=== PATIENT | female | born 1980 | race Caucasian/White ===

== ENCOUNTER 2024-04-24 08:44 | Inpatient (IN) ==
--- NOTE | 2024-04-24 10:26 | Emergency Department Note ---
Impression & Plan Cellulitis of right hand, Cat bite of right hand with infection ED Provider Note CHIEF COMPLAINT: Infected cat bite of the right hand HISTORY OF PRESENT ILLNESS: Patient is a [id number] 44-year-old female who returns to the emergency department for evaluation of an infected cat bite of the right hand. She was seen and evaluated here yesterday. The bite occurred on , 2 days ago. She received IV Unasyn in the emergency department and was discharged on Augmentin. She has had a total of 3 doses of the Augmentin. She states that the erythema has spread past the outline from yesterday. No fevers or chills. She has been elevating the hand for pain and swelling. REVIEW OF SYSTEMS: Review of systems as per HPI. All other systems reviewed were negative. At least 6 systems reviewed. PMH: External medical records are reviewed and summarized as above/below. See Problem List. SOCIAL HISTORY: Patient living at home. 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 PHYSICAL EXAM: Vital Signs: Reviewed Nurse's notes. CONSTITUTIONAL: Well-appearing 44-year-old female sitting semiupright on the gurney in no acute distress. INTEGUMENTARY: Examination of the dorsal aspect of the right hand note several puncture wounds, with small pustules noted. There is generalized erythema, swelling, and warmth of the dorsum of the hand, from the second through fifth MCP joints, to proximal to the extensor crease of the wrist. The thumb is spared. Fingers are mildly swollen, but not erythematous. She can extend the fingers fully, flexion limited by soft tissue swelling. There is no lymphangitic streaking up the forearm. The right upper extremity is neurovascularly intact. EMERGENCY DEPARTMENT COURSE: The patient was seen and assessed as above. External medical records are reviewed. She presents to the emergency department for evaluation of worsening with cellulitis of the right hand secondary to cat bite. She is on appropriate antibiotics, has been on antibiotics less than 24 hours however. I did recommend a repeat dose of Unasyn, patient was in agreement. This was ordered. [place] Hospitalist, Dr. Valencia, then presented to the emergency department, and reported to me that she would like to admit the patient for continued IV antibiotics. The hospitalist plan was discussed with forms analysis manager. Please refer to the hospitalist admission H&P and orders for further information. Differential diagnoses considered included cellulitis, abscess, necrotizing fasciitis, osteomyelitis, infectious tenosynovitis, among others. Past Med/Surg History Problem List (Updated 04/24/24 @ 12:23 by Ron Ramires) Cat bite of right hand with infection (Acute) Cellulitis of right hand (Acute) Cellulitis (Acute) Animal bite (Acute) Eczematous dermatitis of eyelid Depression Vitamin D deficiency Hypercholesteremia Kidney stones Uterine fibroid Medical History History of abnormal cervical Pap smear Migraine headache without aura Urinary calculus Personal history of kidney stones Conjunctivitis Surgical History No pertinent past surgical history Family History Father Myocardial infarction Stroke Grandmother (Paternal) Breast cancer Aunt Breast cancer Brother Thyroid cancer Denies family history of Ovarian cancer Prostate cancer Colorectal cancer Social History Smoking Status: Never smoker Do You Dip or Chew Tobacco: No; Hx Alcohol Use: No Hx Substance Use: No Preferred Language: French Communication Ability: Effective Visual Impairment: No Limitations Hearing Ability: Normal marital status: Single Current Living Situation Comment: lives with son current occupational status: employed 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 Feels Safe at Home: Yes Childhood Exposure to Second-Hand Smoke: No Dental Care, Regularly: Yes Physical Activity Frequency: Does not Exercise Seatbelt Use: always Allergies Allergies Allergy/AdvReac Type Severity Reaction Status Date / Time meperidine [From Demerol] Allergy Verified 04/24/24 10:49 escitalopram [From Lexapro] AdvReac tired Verified 04/24/24 10:49 Home Meds Home Medications Medication Instructions Recorded Confirmed acetaminophen 500 mg tablet 500 mg PO Q6H PRN PAIN/FEVER 04/23/24 04/24/24 drospirenone 3 mg-ethinyl 1 tab PO QAM 04/23/24 04/24/24 estradiol 0.03 mg tablet (Svitlana) multivitamin 1 tab PO DAILY 04/23/24 04/24/24 venlafaxine 150 mg See Rx Instructions .Route .COMPLEX 04/23/24 04/24/24 capsule,extended release 24 hr venlafaxine 75 mg capsule,extended See Rx Instructions .Route .COMPLEX 04/23/24 04/24/24 release 24 hr Previous Rx's Medication Instructions Recorded cholecalciferol (vitamin D3) 25 25 mcg PO DAILY #30 caps 12/18/20 mcg (1,000 unit) capsule amoxicillin 875 mg-potassium 1 tab PO BID #20 tabs 04/23/24 clavulanate 125 mg tablet Results & Data (ED) Vital Signs Vital Signs - 24 hr 04/24/24 08:52 04/24/24 11:09 Temperature 36.3 C L Temperature Source Oral Pulse Rate 88 98 H Respiratory Rate 20 Respiratory Effort / Characteristics Non-Labored Spontaneous Respiratory Depth Normal Blood Pressure 120/82 Blood Pressure Mean 94 Pulse Oximetry 96 Oxygen Delivery Method Room Air Sepsis Recent Fever Within 48 Hours No Sepsis New/Unexplained Change in Mental Status N/A Sepsis Action Taken by Nursing No Action Required Home Medications Current Medication List: was personally reviewed by me Laboratory Data 04/24/24 11:36 04/24/24 11:36 Lab Results 04/24/24 Range/Units 11:36 WBC 9.65 (4.8-10.8) K/ul RBC 4.50 (4.20-5.40) M/uL Hgb 12.7 (12.0-16.0) g/dl Hct 38.8 (37.0-47.0) % MCV 86.2 (80.0-100.0) fL MCH 28.2 (25.0-34.0) pg MCHC 32.7 (32.0-36.0) g/dL RDW Std Deviation 40.1 (36.4-46.3) fL RDW Coeff of Pratibha 12.9 (11.5-14.5) % Plt Count 290 (130-400) K/uL MPV 11.0 (9.4-12.4) fL Immature Gran % (Auto) 0.3 % Neut % (Auto) 61.7 % Lymph % (Auto) 29.9 % Graves % (Auto) 5.8 % Eos % (Auto) 1.9 % Baso % (Auto) 0.4 % Neut # (Auto) 5.95 (1.40-6.50) K/uL Lymph # (Auto) 2.89 (1.20-3.40) K/uL Graves # (Auto) 0.56 (0.11-0.59) K/uL Eos # (Auto) 0.18 (0.00-0.50) K/uL Baso # (Auto) 0.04 (0.00-0.20) K/uL Immature Gran # (Auto) 0.03 (0.01-0.20) K/uL ESR 58 H (0-20) mm/hr Sodium 138 (136-145) mmol/L Potassium TNP Chloride 105 (98-107) mmol/L Carbon Dioxide 24 (21-32) mmol/L Anion Gap 9 (3-11) BUN 9 (6-23) mg/dl Creatinine 0.56 L (0.6-1.2) mg/dl Est Cr Clr Drug Dosing 117.3 ml/min Est GFR ( Amer) 132.4 ml/min Est GFR (Non-Af Amer) 114.2 ml/min BUN/Creatinine Ratio 16.1 (10-20) Glucose 83 (70-99(Fasting)) mg/dl Calcium 8.8 (8.6-10.3) mg/dl Magnesium 2.0 (1.7-2.4) mg/dl Total Bilirubin 0.2 (0.2-1.0) mg/dl AST TNP ALT 28 (7-52) U/L Alkaline Phosphatase 79 (34-104) U/L C-Reactive Protein 8.56 H (0-0.5) mg/dl Total Protein 7.2 (6.0-8.3) gm/dl Albumin 3.7 (3.4-5.0) gm/dl Globulin 3.5 (2.5-4.0) gm/dl Albumin/Globulin Ratio 1.1 (0.9-2) Administered Medications Discontinued Medications Ampicillin Sodium/Sulbactam Sodium 3,000 mg/ Sodium Chloride 100 mls @ 200 mls/hr IV NOW STA Stop: 04/24/24 10:25 Last Infusion: 04/24/24 11:12 Dose: Infused Documented By: Admin: 04/24/24 10:45 Dose: 200 mls/hr Documented By: KALEN Discharge Plan Visit Data Chief Complaint: Animal Bite Stated Complaint: R HAND CAT BITE, REDNESS HAS EXTENDED ED Provider: Ashwin Deshpande ED Midlevel Provider: Ron Ramires Discharge Problem: Cellulitis of right hand, Cat bite of right hand with infection Patient Disposition: Admitted As Inpatient Forms Stand Alone Forms: My [facility] Prescriptions Prescriptions: No Action cholecalciferol (vitamin D3) 25 mcg (1,000 unit) capsule 25 mcg PO DAILY Qty: 30 5RF multivitamin Tablet 1 tab PO DAILY venlafaxine 75 mg capsule,extended release 24hr See Rx Instructions .ROUTE .COMPLEX Rx Instructions: Take 75mg w/ 150mg to equal 225mg by mouth every morning. venlafaxine 150 mg capsule,extended release 24hr See Rx Instructions .ROUTE .COMPLEX Rx Instructions: Take 150mg w/ 75mg to equal 225mg by mouth every morning. acetaminophen [Tylenol Ex Str Rapid Release] 500 mg Tablet 500 mg PO Q6H PRN (Reason: PAIN/FEVER) drospirenone-ethinyl estradiol [Svitlana] 3-0.03 mg tablet 1 tab PO QAM amoxicillin-pot clavulanate 875-125 mg tablet 1 tab PO BID Qty: 20 0RF Rx Instructions: Start Date 04/23/24, pt unsure of day supply but has taken 3 doses. Referrals Referrals: Jameson Wang MD [Primary Care Provider] -
[2024-04-24] MEDS: AMPICILLIN/SULBACTAM SOD 3,000 MG in SODIUM CHLOR 0.9% MINI-B 100 ML IV STA (10:45)
--- NOTE | 2024-04-24 11:11 | History & Physical Report ---
<Statement entered by Ashley Valencia MD - 04/24/24 18:33> 44 y/o with severe cellulitis dorsum of right hand following cat bite. Had dose of IV antibiotics yesterday and three doses oral augmentin yet pain and swelling worsened and erythema spread overnight. Concerns are abscess, tenosynovitis so I recommended admission for IV antibiotics and further evaluation. On my exam there is significant swelling erythema warmth and induration dorsum of R hand no obviously fluctuant areas, several puncture wounds two of which have pustules, extension of fingers mildly impaired though can get full extension with effort, flexion impaired cannot make complete fist. WBC normal and afebrile but ESR/CRP very elevated. Plan to continue unasyn, consulted Dr. Caraballo, hand MRI - hand MRI report reviewed - no abscess or drainable fluid collection, early extensor tenosynovitis R 3rd digit Agree with documentation below by Maegan Uribe PA-C Date of Service April 24, 2024 Assessment & Plan (1) Cat bite of right hand with infection: Plan: s.p Unasyn x 1 dose in ER 04/23 and 3 doses Augmentin PO at home. Cat bite at [facility] 04/22 worsened pain/edema/cellulitis despite outpt abx Obs med/surg Check CBC w/ diff, CMP, mag, procal, ESR, CRP as none prior for comparison. Can hold off blood cultures as has been on abx unless procal significantly elevated WBC borderline despite IV/PO abx, procal neg, no need for blood cultures as already received abx as well ESR/CRP elevation, 58/8.56 [facility] consulted ,discussed w/ Dr Caraballo on admission and will see in ER -->Recs for MRI hand, ordered No OR for today, diet ordered but possible I&D in AM Continue Unasyn IV for now Check MRSA swab given healthcare worker however no prior known hx MRSA, may need Dapto/Vanco if positive -- NEGATIVE MRSA screen, will continue Unasyn for now/monitor Monitor erythema/makrings Elevation of extremity Warm soaks BID Tylenol IV 1gm q8h prn fever/pain, toradol 15mg q6h prn. She is wanting to avoid opiates, toradol is preference. Orders to given dose x 1 now NPO p [place] for possible OR Monitor labs/exam in AM (2) Cellulitis of right hand: Plan: worsened despite outpatient abx, labs/MRI as above, orthopedics consulted (3) Depression: Plan: continue venlafaxine 225mg for AM, already took dose this morning. Does have issues when she doesn't take this (4) Vitamin D deficiency: (5) Hypercholesteremia: Plan inpatient stay for IV abx, MRI of hand for eval deeper infection/concerns for tenosynovitis and orthopedics evaluation as discussed with Dr Caraballo in ER. Ortho consult placed NPO at midnight in case of need for OR History of Present Illness Chief Complaint: cat bite Primary Care Provider: Jameson Wang MD 44yo female with PMH significant or depression, HLD presented after cat bite on 04/22 at [facility] and had cleaned area well but AM 04/23 worsened when she came to work and went to ER where she had xray and dose of Unasyn and discharged home on Augmentin. Is up to date on her tetanus, dose 2 years ago and cat up to date on shots. She reports she took 3 doses and elevated hand at home, has had progression of redness/erythema and blisters to two of the three bite [place], not unroofed at this time. Pain with flexion of the hand, not able to make a complete fist. Appears worse flexion/swelling than when seen yesterday. Denies fever/chills at home but wasn't taking her temperature. She notes she would like to avoid opiates and toradol drug of choice. Discussed admission for ongoing abx, will continue Unasyn unless MRSA swab positive give healthcare worker and consultation with Dr Caraballo and MRI for eval of possible underlying tenosynovitis. Takes venlafaxine daily 225mg, stroke like symptoms when she misses this and reports she did take the dose this morning. To remain NPO until imaging/eval by Dr Caraballo in case of need for OR vs monitoring on IV abx. Patient agreeable to monitoring, full code. Allergies Allergy/AdvReac Type Severity Reaction Status Date / Time meperidine [From Demerol] Allergy Verified 04/24/24 10:49 escitalopram [From Lexapro] AdvReac tired Verified 04/24/24 10:49 Home Medications Medication Instructions Recorded Confirmed Type cholecalciferol (vitamin D3) 25 25 mcg PO DAILY #30 caps 12/18/20 04/24/24 Rx mcg (1,000 unit) capsule acetaminophen 500 mg tablet 500 mg PO Q6H PRN PAIN/FEVER 04/23/24 04/24/24 History amoxicillin 875 mg-potassium 1 tab PO BID #20 tabs 04/23/24 04/24/24 Rx clavulanate 125 mg tablet drospirenone 3 mg-ethinyl 1 tab PO QAM 04/23/24 04/24/24 History estradiol 0.03 mg tablet (Svitlana) multivitamin 1 tab PO DAILY 04/23/24 04/24/24 History venlafaxine 150 mg See Rx Instructions .Route .COMPLEX 04/23/24 04/24/24 History capsule,extended release 24 hr venlafaxine 75 mg capsule,extended See Rx Instructions .Route .COMPLEX 04/23/24 04/24/24 History release 24 hr Past Med/Surg History Problem List Cat bite of right hand with infection (Acute) Cellulitis of right hand (Acute) Cellulitis (Acute) Animal bite (Acute) Eczematous dermatitis of eyelid Depression Vitamin D deficiency Hypercholesteremia Kidney stones Uterine fibroid Medical History History of abnormal cervical Pap smear Migraine headache without aura Urinary calculus Personal history of kidney stones Conjunctivitis Surgical History No pertinent past surgical history Family History Father Myocardial infarction Stroke Grandmother (Paternal) Breast cancer Aunt Breast cancer Brother Thyroid cancer Denies family history of Ovarian cancer Prostate cancer Colorectal cancer Social History Smoking Status: Never smoker Do You Dip or Chew Tobacco: No; Hx Alcohol Use: No Hx Substance Use: No Preferred Language: [place]al[place] Communication Ability: Effective Visual Impairment: No Limitations Hearing Ability: Normal marital status: Single Current Living Situation Comment: lives with son current occupational status: employed 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 Feels Safe at Home: Yes Childhood Exposure to Second-Hand Smoke: No Dental Care, Regularly: Yes Physical Activity Frequency: Does not Exercise Seatbelt Use: always Physical Exam Physical Exam: 44yo female sitting up in bed in ER, NAD but mildly uncomfortable appearing with movement/flexion to her right hand head atraumatic, normocephalic, mmm/slightly dry, trachea midline Resp; even/unlabored, no w/c/r, on room air CV: RRR (rates 80-90s), no significant mrg GI: +BS, soft/NT ; no [place] MSK/Neuro/Skin: no confusion/no slurred speech/facial droop, slight redness to cheeks RIGHT hand with several punctures from cat bite, erythema progressed along prior markings, +warmth, +tenderness, + cellulitis +pain with flexion of fingers, unable to make a fist. +pulse 2 areas of pustules, not draining some ecchymosis to mid dorsum of hand in region of third finger (most painful with flexion at this digit, however also having discomfort with flexion of 2nd/4th fingers as well) Psych: AOx3, cooperative and pleasant during encounter Results & Data Results & Data Vital Signs (Past 12 Hours) Vital Signs Temp Pulse Resp BP Pulse Ox O2 Del Method 04/24/24 08:52 36.3 C L 88 20 120/82 96 Room Air Laboratory Results 04/24/24 04/24/24 Range/Units 11:36 11:18 WBC 9.65 (4.8-10.8) K/ul RBC 4.50 (4.20-5.40) M/uL Hgb 12.7 (12.0-16.0) g/dl Hct 38.8 (37.0-47.0) % MCV 86.2 (80.0-100.0) fL MCH 28.2 (25.0-34.0) pg MCHC 32.7 (32.0-36.0) g/dL RDW Std Deviation 40.1 (36.4-46.3) fL RDW Coeff of Pratibha 12.9 (11.5-14.5) % Plt Count 290 (130-400) K/uL MPV 11.0 (9.4-12.4) fL Immature Gran % (Auto) 0.3 % Neut % (Auto) 61.7 % Lymph % (Auto) 29.9 % Arroyo % (Auto) 5.8 % Eos % (Auto) 1.9 % Baso % (Auto) 0.4 % Neut # (Auto) 5.95 (1.40-6.50) K/uL Lymph # (Auto) 2.89 (1.20-3.40) K/uL [place] # (Auto) 0.56 (0.11-0.59) K/uL Eos # (Auto) 0.18 (0.00-0.50) K/uL Baso # (Auto) 0.04 (0.00-0.20) K/uL Immature Gran # (Auto) 0.03 (0.01-0.20) K/uL ESR 58 H (0-20) mm/hr Sodium 138 (136-145) mmol/L Potassium TNP Chloride 105 (98-107) mmol/L Carbon Dioxide 24 (21-32) mmol/L Anion Gap 9 (3-11) BUN 9 (6-23) mg/dl Creatinine 0.56 L (0.6-1.2) mg/dl Est Cr Clr Drug Dosing 117.3 ml/min Est GFR ( Amer) 132.4 ml/min Est GFR (Non-Af Amer) 114.2 ml/min BUN/Creatinine Ratio 16.1 (10-20) Glucose 83 (70-99(Fasting)) mg/dl Calcium 8.8 (8.6-10.3) mg/dl Magnesium 2.0 (1.7-2.4) mg/dl Total Bilirubin 0.2 (0.2-1.0) mg/dl AST TNP ALT 28 (7-52) U/L Alkaline Phosphatase 79 (34-104) U/L C-Reactive Protein 8.56 H (0-0.5) mg/dl Total Protein 7.2 (6.0-8.3) gm/dl Albumin 3.7 (3.4-5.0) gm/dl Globulin 3.5 (2.5-4.0) gm/dl Albumin/Globulin Ratio 1.1 (0.9-2) Procalcitonin < 0.02 (0-0.5) ng/ml Nasal Screen MRSA (PCR) Pending Code Status & VTE Plan VTE Prophylaxis Plan VTE Prophylaxis will be ordered: Yes PG Care Time/CCT Total # of Minutes Spent Total Time Spent with Patient: Total time spent is greater than 50% in coordination of care (as documented) at patient's floor/unit and/or counseling patient: Coding Level of Care Code 46364 INT INP/OBS CARE 3/75MIN Diagnoses Cat bite of right hand with infection S61.451A; L08.9; W55.01XA Cellulitis of right hand L03.113 Depression F32.9 Vitamin D deficiency E55.9 Hypercholesteremia E78.00
[2024-04-24 11:51] LABS: Basophils # (auto) 0.04 K/uL (0.00-0.20); Basophils % (auto) 0.4 %; Eosinophils # (auto) 0.18 K/uL (0.00-0.50); Eosinophils % (auto) 1.9 %; Hematocrit (blood only) 38.8 % (37.0-47.0); Hemoglobin 12.7 g/dl (12.0-16.0); Immature Granulocytes # (auto) 0.03 K/uL (0.01-0.20); Immature Granulocytes % (auto) 0.3 %; Lymphocytes # (auto) 2.89 K/uL (1.20-3.40); Lymphocytes % (auto) 29.9 %; Mean Corpuscular Hemoglobin 28.2 pg (25.0-34.0); Mean Corpuscular Hgb Conc 32.7 g/dL (32.0-36.0); Mean Corpuscular Volume 86.2 fL (80.0-100.0); Monocytes # (auto) 0.56 K/uL (0.11-0.59); Monocytes % (auto) 5.8 %; Neutrophils # (auto) 5.95 K/uL (1.40-6.50); Neutrophils % (auto) 61.7 %; Platelet Count 290 K/uL (130-400); RDW Coefficient of Variation 12.9 % (11.5-14.5); RDW Standard Deviation 40.1 fL (36.4-46.3); White Blood Count 9.65 K/ul (4.8-10.8)
[2024-04-24 12:07] LABS: Alanine Aminotransferase 28 U/L (7-52); Albumin Globulin Ratio 1.1 (0.9-2); Albumin Level 3.7 gm/dl (3.4-5.0); Alkaline Phosphatase 79 U/L (34-104); Anion Gap 9 (3-11); BUN Creatinine Ratio 16.1 (10-20); Bilirubin,Total 0.2 mg/dl (0.2-1.0); Blood Urea Nitrogen 9 mg/dl (6-23); C Reactive Protein 8.56 mg/dl (0-0.5); Calcium 8.8 mg/dl (8.6-10.3); Carbon Dioxide 24 mmol/L (21-32); Chloride 105 mmol/L (98-107); Creatinine Clr Calc Pharmacy 117.3 ml/min; Est GFR (African American) 132.4 ml/min; Est GFR (Non-African American) 114.2 ml/min; Globulin 3.5 gm/dl (2.5-4.0); Glucose 83 mg/dl (70-99(Fasting)); Sodium 138 mmol/L (136-145); Total Protein 7.2 gm/dl (6.0-8.3)
--- NOTE | 2024-04-24 12:57 | Anesthesiology Consultation ---
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 History Surgery Operation Date: 04/25/24 07:30 Proposed Procedures p Incision and Drainage of Right Hand - Brant Caraballo MD Height/Weight Height: 5 ft 2 in Weight: 68.2 kg Allergies Allergy/AdvReac Type Severity Reaction Status Date / Time meperidine [From Demerol] Allergy Verified 04/24/24 10:49 escitalopram [From Lexapro] AdvReac tired Verified 04/24/24 10:49 Medications Home Medications Medication Instructions Recorded Confirmed Last Taken cholecalciferol (vitamin D3) 25 25 mcg PO DAILY #30 caps 12/18/20 04/24/24 04/24/24 mcg (1,000 unit) capsule acetaminophen 500 mg tablet 500 mg PO Q6H PRN PAIN/FEVER 04/23/24 04/24/24 Unknown amoxicillin 875 mg-potassium 1 tab PO BID #20 tabs 04/23/24 04/24/24 04/24/24 clavulanate 125 mg tablet drospirenone 3 mg-ethinyl 1 tab PO QAM 04/23/24 04/24/24 04/24/24 estradiol 0.03 mg tablet (Svitlana) multivitamin 1 tab PO DAILY 04/23/24 04/24/24 04/24/24 venlafaxine 150 mg See Rx Instructions .Route .COMPLEX 04/23/24 04/24/24 04/24/24 capsule,extended release 24 hr venlafaxine 75 mg capsule,extended See Rx Instructions .Route .COMPLEX 04/23/24 04/24/24 04/24/24 release 24 hr Past Medical History Medical History History of abnormal cervical Pap smear Migraine headache without aura Urinary calculus Personal history of kidney stones Conjunctivitis Past Family History Family History Father Myocardial infarction Stroke Grandmother (Paternal) Breast cancer Aunt Breast cancer Brother Thyroid cancer Denies family history of Ovarian cancer Prostate cancer Colorectal cancer Past Surgical History Surgical History No pertinent past surgical history Social History Smoking Status: Never smoker Do You Dip or Chew Tobacco: No Hx Alcohol Use: No Hx Substance Use: No Physical Exam Vital Signs Last Vital Signs Temp 97.3 F L 04/24/24 08:52 Pulse 98 H 04/24/24 11:09 Resp 20 04/24/24 08:52 BP 120/82 04/24/24 08:52 Pulse Ox 96 04/24/24 08:52 O2 Del Method Room Air 04/24/24 08:52 Testing Laboratory Results 04/24/24 11:36
[2024-04-24 13:03] LABS: Potassium 3.6 mmol/L (3.5-5.1)
[2024-04-24] MEDS ORDERED: ACETAMINOPHEN 1,000 MG/100 ML VIAL IV PRN (14:24)
[2024-04-24] MEDS: KETOROLAC TROMETHAMINE 15 MG/ML VIAL IV PRN (14:36)
[2024-04-24] MEDS: AMPICILLIN/SULBACTAM SOD 3,000 MG in SODIUM CHLOR 0.9% MINI-B 100 ML IV SCH (16:29)
[2024-04-24] MEDS: GADOBUTROL 10ML VIAL IV ONE (18:01)
--- NOTE | 2024-04-24 18:24 | Magnetic Resonance Report ---
MR hand RT wo/w con HISTORY: 44 years-old Female cat bite, eval tenosynovitis acute pain of the right hand status post i njury. Soft tissue swelling. COMPARISON: Hand radiographs 04/23/2024 TECHNIQUE: Multiplanar multisequence MRI of the right hand was obtained with and without IV contrast. FINDINGS: Motion degraded exam. There is moderate dorsal subcutaneous edema with edema tracking along the secon d through fifth digit extensor tendons. Subcutaneous edema is most pronounced in the third finger. No drainable fluid collections or bone marrow edema. No acute fracture, dislocation or osseous erosion. Flexor compartment tendons appear normal. Unremarkable ulnar nerve. No acute tendon or ligament tear identified. Enhancement is noted along the dorsal aspect of the third extensor tendon sheath on imag e 17 series 11. IMPRESSION: 1. Dorsal hand cellulitis with developing third digit extensor tenosynovitis. 2. No abscess or acute osseous abnormality. ACT 112: Negative or not required by law. The above report was generated using voice recognition software. It may contain grammatical, syntax o r spelling errors. Electronically signed by: El Valladares M.D. 04/24/2024 6:22 PM
--- NOTE | 2024-04-24 19:24 | Orthopedic Consultation ---
Date of Consultation April 24, 2024 Assessment & Plan (1) Cat bite of right hand with infection: IMPRESSION: Right hand cellulitis following cat bite PLAN: Continue IV antibiotics Warm soaks BID Will continue to follow. Have placed on the add-on list for tomorrow if symptoms worsen, NPO after midnight. Continue care per primary service Present on Admission?: Yes History of Present Illness Reason for Consultation: Right infection following cat bite Requesting Physician: Jas Caraballo MD Attending Physician: Ashley Valencia MD History of Present Illness 44 y/o female was bit by a cat on her right hand. She developed cellulitis in the dorsum of the right hand and had a dose of IV antibiotics 04/23/24 and three doses oral Augmentin; however her pain, swelling, and erythema worsened overnight. She returned to the ED and has been admitted for IV antibiotics. I was consulted for further evaluation and treatment. Allergies Allergy/AdvReac Type Severity Reaction Status Date / Time meperidine [From Demerol] Allergy Verified 04/24/24 10:49 escitalopram [From Lexapro] AdvReac tired Verified 04/24/24 10:49 Home Medications Medication Instructions Recorded Confirmed Type cholecalciferol (vitamin D3) 25 25 mcg PO DAILY #30 caps 12/18/20 04/24/24 Rx mcg (1,000 unit) capsule acetaminophen 500 mg tablet 500 mg PO Q6H PRN PAIN/FEVER 04/23/24 04/24/24 History amoxicillin 875 mg-potassium 1 tab PO BID #20 tabs 04/23/24 04/24/24 Rx clavulanate 125 mg tablet drospirenone 3 mg-ethinyl 1 tab PO QAM 04/23/24 04/24/24 History estradiol 0.03 mg tablet (Svitlana) multivitamin 1 tab PO DAILY 04/23/24 04/24/24 History venlafaxine 150 mg See Rx Instructions .Route .COMPLEX 04/23/24 04/24/24 History capsule,extended release 24 hr venlafaxine 75 mg capsule,extended See Rx Instructions .Route .COMPLEX 04/23/24 04/24/24 History release 24 hr Patient History Medical History History of abnormal cervical Pap smear Migraine headache without aura Urinary calculus Personal history of kidney stones Conjunctivitis Surgical History No pertinent past surgical history Family History Father Myocardial infarction Stroke Grandmother (Paternal) Breast cancer Aunt Breast cancer Brother Thyroid cancer Denies family history of Ovarian cancer Prostate cancer Colorectal cancer Social History Smoking Status: Never smoker Second Hand Exposure: No; Do You Dip or Chew Tobacco: No; Tobacco Cessation Education Requested by Patient: No Hx Alcohol Use: No Hx Substance Use: No Preferred Language: Vietnamese Communication Ability: Effective Visual Impairment: No Limitations Hearing Ability: Normal Regional Vice [employer] Required: No Beliefs That Will Affect Care: None marital status: Single Current Living Situation: Family Current Living Situation Comment: lives with son 13 years old current occupational status: employed 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 Motor to median, radial, ulnar, AIN, PIN intact. Sensation to light touch intact. + Swelling dorsum of hand. No juana fluid collection. Area is tender to palpation. 2 dorsal punch wounds noted one adjacent to the 3rd metacarpal distally with fibrinous material & the other with small scab near 1st web space. Has no pain with extension of the digits. Unable to make a full fist. Fingers are normal size. Erythema has spread slight proximally from mykel made the day before. Results & Data Vital Signs (Past 12 Hours) Vital Signs Temp Pulse Pulse Resp BP BP Pulse Ox 04/24/24 15:25 36.6 C 83 14 117/76 97 04/24/24 14:00 36.6 C 16 114/75 04/24/24 11:09 98 H 04/24/24 08:52 36.3 C L 88 20 120/82 96 O2 Del Method 04/24/24 15:25 Room Air 04/24/24 14:00 Room Air 04/24/24 11:09 04/24/24 08:52 Room Air Laboratory Results Laboratory Results WBC 9.65 K/ul (4.8-10.8) 04/24/24 11:36 RBC 4.50 M/uL (4.20-5.40) 04/24/24 11:36 Hgb 12.7 g/dl (12.0-16.0) 04/24/24 11:36 Hct 38.8 % (37.0-47.0) 04/24/24 11:36 MCV 86.2 fL (80.0-100.0) 04/24/24 11:36 MCH 28.2 pg (25.0-34.0) 04/24/24 11:36 MCHC 32.7 g/dL (32.0-36.0) 04/24/24 11:36 RDW Std Deviation 40.1 fL (36.4-46.3) 04/24/24 11:36 RDW Coeff of Pratibha 12.9 % (11.5-14.5) 04/24/24 11:36 Plt Count 290 K/uL (130-400) 04/24/24 11:36 MPV 11.0 fL (9.4-12.4) 04/24/24 11:36 Immature Gran % (Auto) 0.3 % 04/24/24 11:36 Neut % (Auto) 61.7 % 04/24/24 11:36 Lymph % (Auto) 29.9 % 04/24/24 11:36 Callahan % (Auto) 5.8 % 04/24/24 11:36 Eos % (Auto) 1.9 % 04/24/24 11:36 Baso % (Auto) 0.4 % 04/24/24 11:36 Neut # (Auto) 5.95 K/uL (1.40-6.50) 04/24/24 11:36 Lymph # (Auto) 2.89 K/uL (1.20-3.40) 04/24/24 11:36 Callahan # (Auto) 0.56 K/uL (0.11-0.59) 04/24/24 11:36 Eos # (Auto) 0.18 K/uL (0.00-0.50) 04/24/24 11:36 Baso # (Auto) 0.04 K/uL (0.00-0.20) 04/24/24 11:36 Immature Gran # (Auto) 0.03 K/uL (0.01-0.20) 04/24/24 11:36 ESR 58 mm/hr (0-20) H 04/24/24 11:36 Sodium 138 mmol/L (136-145) 04/24/24 11:36 Potassium 3.6 mmol/L (3.5-5.1) 04/24/24 12:13 Chloride 105 mmol/L (98-107) 04/24/24 11:36 Carbon Dioxide 24 mmol/L (21-32) 04/24/24 11:36 Anion Gap 9 (3-11) 04/24/24 11:36 BUN 9 mg/dl (6-23) 04/24/24 11:36 Creatinine 0.56 mg/dl (0.6-1.2) L 04/24/24 11:36 Est Cr Clr Drug Dosing 117.3 ml/min 04/24/24 11:36 Est GFR ( Amer) 132.4 ml/min 04/24/24 11:36 Est GFR (Non-Af Amer) 114.2 ml/min 04/24/24 11:36 BUN/Creatinine Ratio 16.1 (10-20) 04/24/24 11:36 Glucose 83 mg/dl (70-99(Fasting)) 04/24/24 11:36 Calcium 8.8 mg/dl (8.6-10.3) 04/24/24 11:36 Magnesium 2.0 mg/dl (1.7-2.4) 04/24/24 11:36 Total Bilirubin 0.2 mg/dl (0.2-1.0) 04/24/24 11:36 AST 23 U/L (13-39) 04/24/24 12:13 ALT 28 U/L (7-52) 04/24/24 11:36 Alkaline Phosphatase 79 U/L (34-104) 04/24/24 11:36 C-Reactive Protein 8.56 mg/dl (0-0.5) H 04/24/24 11:36 Total Protein 7.2 gm/dl (6.0-8.3) 04/24/24 11:36 Albumin 3.7 gm/dl (3.4-5.0) 04/24/24 11:36 Globulin 3.5 gm/dl (2.5-4.0) 04/24/24 11:36 Albumin/Globulin Ratio 1.1 (0.9-2) 04/24/24 11:36 Procalcitonin < 0.02 ng/ml (0-0.5) 04/24/24 11:36 Nasal Screen MRSA (PCR) Negative (Negative) 04/24/24 11:18 Impressions Hand MRI 04/24/24 10:56 MR hand RT wo/w con HISTORY: 44 years-old Female cat bite, eval tenosynovitis acute pain of the right hand status post injury. Soft tissue swelling. COMPARISON: Hand radiographs 04/23/2024 TECHNIQUE: Multiplanar multisequence MRI of the right hand was obtained with and without IV contrast. FINDINGS: Motion degraded exam. There is moderate dorsal subcutaneous edema with edema tracking along the second through fifth digit extensor tendons. Subcutaneous edema is most pronounced in the third finger. No drainable fluid collections or bone marrow edema. No acute fracture, dislocation or osseous erosion. Flexor com partment tendons appear normal. Unremarkable ulnar nerve. No acute tendon or ligament tear identified. Enhancement is noted along the dorsal aspect of the third extensor tendon sheath on image 17 series 11. IMPRESSION: 1. Dorsal hand cellulitis with developing third digit extensor tenosynovitis. 2. No abscess or acute osseous abnormality. ACT 112: Negative or not required by law. The above report was generated using voice recognition software. It may contain grammatical, syntax or spelling errors. Electronically signed by: El Valladares M.D. 04/24/2024 6:22 PM
[2024-04-25 06:13] LABS: Basophils # (auto) 0.04 K/uL (0.00-0.20); Basophils % (auto) 0.6 %; Eosinophils # (auto) 0.28 K/uL (0.00-0.50); Eosinophils % (auto) 4.4 %; Hematocrit (blood only) 38.8 % (37.0-47.0); Hemoglobin 12.7 g/dl (12.0-16.0); Immature Granulocytes # (auto) 0.01 K/uL (0.01-0.20); Immature Granulocytes % (auto) 0.2 %; Lymphocytes # (auto) 2.97 K/uL (1.20-3.40); Lymphocytes % (auto) 46.6 %; Mean Corpuscular Hemoglobin 28.1 pg (25.0-34.0); Mean Corpuscular Hgb Conc 32.7 g/dL (32.0-36.0); Mean Corpuscular Volume 85.8 fL (80.0-100.0); Mean Platelet Volume 11.1 fL (9.4-12.4); Monocytes # (auto) 0.38 K/uL (0.11-0.59); Neutrophils % (auto) 42.2 %; Platelet Count 280 K/uL (130-400); RDW Coefficient of Variation 12.9 % (11.5-14.5); RDW Standard Deviation 40.2 fL (36.4-46.3); Red Blood Count 4.52 M/uL (4.20-5.40); White Blood Count 6.38 K/ul (4.8-10.8)
[2024-04-25 06:35] LABS: Albumin Globulin Ratio 1.1 (0.9-2); Albumin Level 3.6 gm/dl (3.4-5.0); BUN Creatinine Ratio 16.9 (10-20); Bilirubin,Total 0.3 mg/dl (0.2-1.0); Calcium 8.8 mg/dl (8.6-10.3); Creatinine Clr Calc Pharmacy 111.3 ml/min; Est GFR (African American) 130.1 ml/min; Est GFR (Non-African American) 112.3 ml/min; Globulin 3.2 gm/dl (2.5-4.0); Potassium 3.9 mmol/L (3.5-5.1); Total Protein 6.8 gm/dl (6.0-8.3)
--- NOTE | 2024-04-25 07:47 | Hospitalist Progress Note ---
<Statement entered by Ashley Valencia MD - 04/25/24 16:42> On my exam Dede's hand is significantly improved today with much less erythema and swelling, ROM of fingers normalized. Plan to continue IV amp- sulbactam through tomorrow AM then home on augmentin. Wound culture with a gram negative mena, pending. Date of Service April 25, 2024 Assessment & Plan (1) Cat bite of right hand with infection: Plan: Initial cat bite at [facility] 04/22 s/p Unasyn x 1 dose in ER 04/23 and 3 doses Augmentin PO at home and additional dose of Unasyn in ER prior to admission with concerns for worsened cellulitis/failure of outpatient treatment and possible underlying tenosynovitis WBC borderline despite abx, however procalcitonin negative. ESR 58, CRP 8.56 Unasyn IV ordered to continue Discussed w/ Dr Caraballo on admission, rec for MRI MRI hand w/ Dorsal hand cellulitis with developing third digit extensor tenosynovitis. No abscess or acute osseous abnormality. Diet, NPO at midnight for possible I&D right hand 04/25 04/[address] Caraballo this morning and is making improvement, no need for I&D. NPO cancelled, diet order Unasyn IV continued WBC 6.3k, hgb 12.7. electrolytes/renal function stable Continue to monitor erythema. Continue elevation, warm soaks BID Tylenol/toradol IV prn pain control - changed tylenol to PO as no longer NPO Was able to grab cx following soaks, no organisms seen/moderate WBC -- follow Would continue IV antibiotics MINIMUM 48hours (through AM 04/26), then can transition to PO if continued improvement and plan to have patient return if any worsening Changed to full admission DVT proph: ambulating in the rooms/no need for chemoproph. (2) Flexor tenosynovitis of finger: Plan: as concerned for on admission given failure of outpatient abx/need for at least continued IV MRI hand w/ Dorsal hand cellulitis with developing third digit extensor tenosynovitis. tx as above continued IV abx (3) Cellulitis of right hand: Plan: worsened despite outpatient abx, labs/MRI as above, orthopedics consulted as above. Thankfully able to avoid I&D and continue IV abx as above (4) Depression: Plan: continue venlafaxine 225mg for AM, issues if she misses (took prior to admission) (5) Vitamin D deficiency: Plan: continue supp (6) Hypercholesteremia: Plan: outpt f/u, diet Plan inpatient stay for IV abx overnight and if continued improvement consideration for dc in AM on PO abx and return if any worsening Admission and Anticipated Discharge Date Admission Date: April 24, 2024 Subjective Evaluated this morning, hand MUCH improved w/ cellulitis. MRI prior reviewed last evening and had been NPO for possible I&D today with Dr Caraballo but appears continued IV abx working and OR cancelled/given diet. Improvement in pain reported as well as flexion/extension, able to make almost complete fist today. Continue elevation, warm soaks. She did get some drainage w/ the soaks/culture sent. Discussed w/ orthopedics and recs for 48hr IV abx and if continued improvement will plan for dc on PO abx and to return if any worsening. No fever/chills, chest pain, shortness of breath. Questions/concerns addressed at this time. Physical Exam Physical Exam: 44yo female coming out of bathroom upon entry, NAD, hand with SIGNIFICANT improvement HEENT: atraumatic, normocephalic, mmm, trachea midline Resp: even/unlabored, no w/c/r, on room air CV: RRR, no significant mrg GI: +BS, soft/NT ; no hudson MSK/Neuro/Skin: no confusion/no slurred speech/facial droop, slight redness to cheeks RIGHT hand with SIGNIFICANT improvement in erythema, receding within markings, decreased tenderness/warmth increased ROM of fingers, able to almost make a complete fist today, improvement in extension. no abscess/fluid collection prior blisters reported draining w/ warm soaks less darkness to palm/third digit on palmar aspect of hand w/ improvement in movement third digit flexion/extension today Psych: AOx3, cooperative and pleasant during encounter Results & Data Results & Data Vital Signs (Past 12 Hours) Vital Signs Temp Pulse Resp BP Pulse Ox O2 Del Method 04/25/24 07:27 36.8 C 85 14 107/73 96 Room Air 04/24/24 21:04 36.6 C 89 16 103/63 94 Room Air Laboratory Results 04/25/24 04/24/24 04/24/24 Range/Units 05:31 15:49 12:13 WBC 6.38 (4.8-10.8) K/ul RBC 4.52 (4.20-5.40) M/uL Hgb 12.7 (12.0-16.0) g/dl Hct 38.8 (37.0-47.0) % MCV 85.8 (80.0-100.0) fL MCH 28.1 (25.0-34.0) pg MCHC 32.7 (32.0-36.0) g/dL RDW Std Deviation 40.2 (36.4-46.3) fL RDW Coeff of Pratibha 12.9 (11.5-14.5) % Plt Count 280 (130-400) K/uL MPV 11.1 (9.4-12.4) fL Immature Gran % (Auto) 0.2 % Neut % (Auto) 42.2 % Lymph % (Auto) 46.6 % Tripp % (Auto) 6.0 % Eos % (Auto) 4.4 % Baso % (Auto) 0.6 % Neut # (Auto) 2.70 (1.40-6.50) K/uL Lymph # (Auto) 2.97 (1.20-3.40) K/uL Tripp # (Auto) 0.38 (0.11-0.59) K/uL Eos # (Auto) 0.28 (0.00-0.50) K/uL Baso # (Auto) 0.04 (0.00-0.20) K/uL Immature Gran # (Auto) 0.01 (0.01-0.20) K/uL ESR (0-20) mm/hr Sodium 139 (136-145) mmol/L Potassium 3.9 3.6 Chloride 106 (98-107) mmol/L Carbon Dioxide 26 (21-32) mmol/L Anion Gap 7 (3-11) BUN 10 (6-23) mg/dl Creatinine 0.59 L (0.6-1.2) mg/dl Est Cr Clr Drug Dosing 111.3 ml/min Est GFR ( Amer) 130.1 ml/min Est GFR (Non-Af Amer) 112.3 ml/min BUN/Creatinine Ratio 16.9 (10-20) Glucose 92 (70-99(Fasting)) mg/dl Calcium 8.8 (8.6-10.3) mg/dl Magnesium 2.0 (1.7-2.4) mg/dl Total Bilirubin 0.3 (0.2-1.0) mg/dl AST 23 23 ALT 29 (7-52) U/L Alkaline Phosphatase 78 (34-104) U/L C-Reactive Protein (0-0.5) mg/dl Total Protein 6.8 (6.0-8.3) gm/dl Albumin 3.6 (3.4-5.0) gm/dl Globulin 3.2 (2.5-4.0) gm/dl Albumin/Globulin Ratio 1.1 (0.9-2) Procalcitonin (0-0.5) ng/ml POC Ur Test Pending Nasal Screen MRSA (PCR) (Negative) 04/24/24 04/24/24 Range/Units 11:36 11:18 WBC 9.65 (4.8-10.8) K/ul RBC 4.50 (4.20-5.40) M/uL Hgb 12.7 (12.0-16.0) g/dl Hct 38.8 (37.0-47.0) % MCV 86.2 (80.0-100.0) fL MCH 28.2 (25.0-34.0) pg MCHC 32.7 (32.0-36.0) g/dL RDW Std Deviation 40.1 (36.4-46.3) fL RDW Coeff of Pratibha 12.9 (11.5-14.5) % Plt Count 290 (130-400) K/uL MPV 11.0 (9.4-12.4) fL Immature Gran % (Auto) 0.3 % Neut % (Auto) 61.7 % Lymph % (Auto) 29.9 % Tripp % (Auto) 5.8 % Eos % (Auto) 1.9 % Baso % (Auto) 0.4 % Neut # (Auto) 5.95 (1.40-6.50) K/uL Lymph # (Auto) 2.89 (1.20-3.40) K/uL Tripp # (Auto) 0.56 (0.11-0.59) K/uL Eos # (Auto) 0.18 (0.00-0.50) K/uL Baso # (Auto) 0.04 (0.00-0.20) K/uL Immature Gran # (Auto) 0.03 (0.01-0.20) K/uL ESR 58 H (0-20) mm/hr Sodium 138 (136-145) mmol/L Potassium TNP Chloride 105 (98-107) mmol/L Carbon Dioxide 24 (21-32) mmol/L Anion Gap 9 (3-11) BUN 9 (6-23) mg/dl Creatinine 0.56 L (0.6-1.2) mg/dl Est Cr Clr Drug Dosing 117.3 ml/min Est GFR ( Amer) 132.4 ml/min Est GFR (Non-Af Amer) 114.2 ml/min BUN/Creatinine Ratio 16.1 (10-20) Glucose 83 (70-99(Fasting)) mg/dl Calcium 8.8 (8.6-10.3) mg/dl Magnesium 2.0 (1.7-2.4) mg/dl Total Bilirubin 0.2 (0.2-1.0) mg/dl AST TNP ALT 28 (7-52) U/L Alkaline Phosphatase 79 (34-104) U/L C-Reactive Protein 8.56 H (0-0.5) mg/dl Total Protein 7.2 (6.0-8.3) gm/dl Albumin 3.7 (3.4-5.0) gm/dl Globulin 3.5 (2.5-4.0) gm/dl Albumin/Globulin Ratio 1.1 (0.9-2) Procalcitonin < 0.02 (0-0.5) ng/ml POC Ur Test Nasal Screen MRSA (PCR) Negative (Negative) Diagnostic Findings Hand MRI 04/24/24 10:56 MR hand RT wo/w con HISTORY: 44 years-old Female cat bite, eval tenosynovitis acute pain of the right hand status post injury. Soft tissue swelling. COMPARISON: Hand radiographs 04/23/2024 TECHNIQUE: Multiplanar multisequence MRI of the right hand was obtained with and without IV contrast. FINDINGS: Motion degraded exam. There is moderate dorsal subcutaneous edema with edema tracking along the second through fifth digit extensor tendons. Subcutaneous edema is most pronounced in the third finger. No drainable fluid collections or bone marrow edema. No acute fracture, dislocation or osseous erosion. Flexor compartment tendons appear normal. Unremarkable ulnar nerve. No acute tendon or ligament tear identified. Enhancement is noted along the dorsal aspect of the third extensor tendon sheath on image 17 series 11. IMPRESSION: 1. Dorsal hand cellulitis with developing third digit extensor tenosynovitis. 2. No abscess or acute osseous abnormality. ACT 112: Negative or not required by law. The above report was generated using voice recognition software. It may contain grammatical, syntax or spelling errors. Electronically signed by: El Valladares M.D. 04/24/2024 6:22 PM PG Care Time/CCT Total # of Minutes Spent Total Time Spent with Patient: Total time spent is greater than 50% in coordination of care (as documented) at patient's floor/unit and/or counseling patient: Coding Level of Care Code 01030 SUB INP/OBS CARE 2/35MIN Diagnoses Cat bite of right hand with infection S61.451A; L08.9; W55.01XA Flexor tenosynovitis of finger M65.9 Cellulitis of right hand L03.113 Depression F32.9 Vitamin D deficiency E55.9 Hypercholesteremia E78.00
[2024-04-25] MEDS: LIDOCAINE 1% LOCAL 20 ML VIAL ONE (08:24)
[2024-04-25] MEDS: VENLAFAXINE HCL XR 150 MG CAPXR PO SCH (08:24)
[2024-04-25] MEDS: CHOLECALCIFEROL 25 MCG (1000 UNITS) TAB PO SCH (08:24)
[2024-04-25] MEDS: VENLAFAXINE HCL XR 75 MG CAPXR PO SCH (08:24)
[2024-04-25] MEDS: BUPIVACAINE/EPINEPHRINE 0.5% MPF 1:200,000 30 ML VIAL ONE (08:24)
--- NOTE | 2024-04-25 08:31 | Orthopedic Progress Note ---
Date of Service April 25, 2024 Assessment & Plan (1) Cat bite of right hand with infection: Plan: The patient was educated regarding today's findings. Conservative care measures were discussed. Though she is improving considerably from yesterday, IV antibiotics are recommended for least another 24 hours. If symptoms continue to improve, she can be transitioned to oral antibiotics. Continue with the warm soapy soaks to promote drainage. The patient will be allowed to eat today. I do not anticipate any need for surgical intervention with her improvement. She will be reassessed in the morning. The patient was seen in conjunction with Dr. Caraballo, who also evaluated the patient and concurred with today's diagnosis and treatment plan. Admission and Anticipated Discharge Date Admission Date: April 24, 2024 Supervising Physician Co-Signing Physician Notes I, Dr. Caraballo, saw and examined the patient. I discussed the management with my PA. I reviewed my PAs note and agree with the documented findings and attest to completing the substantive portion of medical decision making and plan of care I developed. Subjective This 44-year-old female seen today in her room. She is 1 day post admission for right hand infection from a cat bite at [facility]. She has received IV Unasyn overnight. She also performed soaking of the hand numerous times last evening. She states a large amount of pus was expressed. She states the hand feels much better. She remains afebrile. No new complaints. She is n.p.o. this morning in anticipation of possible surgical intervention today. Review of Systems Review of Systems: Unchanged from yesterday. Physical Exam Physical Exam: General: Well-developed, well-nourished, middle-aged female, in no acute distress. Sitting in a bedside chair. Alert and oriented. Skin: Warm and dry with good turgor. No rashes. Puncture kilgore on the dorsum of the right hand are much improved. No pus present. The edema on the dorsum of the hand has improved considerably. Erythema has also improved. Dorsum of the hand is minimally tender. No warmth. Musculoskeletal: The patient has intact motor function of her digits for both flexion and extension. She is able to make a full fist. Thumb circumduction and opposition are intact. Good motion of the wrist without discomfort. No symptoms of tenosynovitis currently. Neurologic: Gross sensation is intact across each of the digits of the right hand. Radial, median, and ulnar nerve functions are intact for both motor and sensory. Peripheral pulses are 2+. Results & Data Vital Signs (Past 12 Hours) Vital Signs Temp Pulse Resp BP Pulse Ox O2 Del Method 04/25/24 07:27 36.8 C 85 14 107/73 96 Room Air 04/24/24 21:04 36.6 C 89 16 103/63 94 Room Air Laboratory Results CBC obtained this morning shows a white count of 6.38. H&H of 12.7 and 38.8. Platelets 280,000. Normal differential. PRP this morning shows normal electrolytes. Normal BUN at 10. Creatinine essentially normal at 0.59. Glucose this morning 92.
[2024-04-25] MEDS ORDERED: ACETAMINOPHEN 500 MG TAB PO PRN (09:55)
[2024-04-26 06:26] LABS: Hematocrit (blood only) 37.9 % (37.0-47.0); Hemoglobin 12.4 g/dl (12.0-16.0); Mean Corpuscular Hemoglobin 28.7 pg (25.0-34.0); Mean Corpuscular Hgb Conc 32.7 g/dL (32.0-36.0); Mean Corpuscular Volume 87.7 fL (80.0-100.0); Mean Platelet Volume 11.2 fL (9.4-12.4); Platelet Count 293 K/uL (130-400); RDW Coefficient of Variation 12.8 % (11.5-14.5); RDW Standard Deviation 41.4 fL (36.4-46.3); Red Blood Count 4.32 M/uL (4.20-5.40); White Blood Count 6.13 K/ul (4.8-10.8)
[2024-04-26 06:38] LABS: BUN Creatinine Ratio 21.3 (10-20); C Reactive Protein 3.52 mg/dl (0-0.5); Calcium 8.2 mg/dl (8.6-10.3); Creatinine Clr Calc Pharmacy 107.6 ml/min; Est GFR (African American) 128.7 ml/min; Potassium 4.1 mmol/L (3.5-5.1)
--- NOTE | 2024-04-26 08:07 | Hospitalist Progress Note ---
Date of Service April 26, 2024 Assessment & Plan (1) Cat bite of right hand with infection: Plan: Initial cat bite at [facility] 04/22 s/p Unasyn x 1 dose in ER 04/23 and 3 doses Augmentin PO at home and additional dose of Unasyn in ER prior to admission with concerns for worsened cellulitis/failure of outpatient treatment and possible underlying tenosynovitis WBC borderline despite abx, however procalcitonin negative. ESR 58, CRP 8.56 Unasyn IV ordered to continue Discussed w/ Dr Caraballo on admission, rec for MRI MRI hand w/ Dorsal hand cellulitis with developing third digit extensor tenosynovitis. No abscess or acute osseous abnormality. Diet, NPO at midnight for possible I&D right hand 04/25 04/[address] Caraballo this morning and is making improvement, no need for I&D. NPO cancelled, diet order Unasyn IV continued WBC 6.3k, hgb 12.7. electrolytes/renal function stable Continue to monitor erythema. Continue elevation, warm soaks BID Tylenol/toradol IV prn pain control - changed tylenol to PO as no longer NPO Was able to grab cx following soaks, no organisms seen/moderate WBC -- follow Would continue IV antibiotics MINIMUM 48hours (through AM 04/26), then can transition to PO if continued improvement and plan to have patient return if any worsening Changed to full admission DVT proph: ambulating in the rooms/no need for chemoproph. 04/26 -- WBC wnl, afebrile. ESR/CRP trending down. 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 If continued improvement on exam this morning will plan to dc back on PO abx (2) Flexor tenosynovitis of finger: Plan: as concerned for on admission given failure of outpatient abx/need for at least continued IV MRI hand w/ Dorsal hand cellulitis with developing third digit extensor tenosynovitis. tx as above continued IV abx (3) Cellulitis of right hand: Plan: worsened despite outpatient abx, labs/MRI as above, orthopedics consulted as above. Thankfully able to avoid I&D and continue IV abx as above (4) Depression: Plan: continue venlafaxine 225mg for AM, issues if she misses (took prior to admission) (5) Vitamin D deficiency: Plan: continue supp (6) Hypercholesteremia: Plan: outpt f/u, diet Plan inpatient stay for IV abx overnight and if continued improvement consideration for dc in AM on PO abx and return if any worsening Admission and Anticipated Discharge Date Admission Date: April 25, 2024 Results & Data Results & Data Vital Signs (Past 12 Hours) Vital Signs Temp Pulse Resp BP Pulse Ox O2 Del Method 04/25/24 20:33 36.6 C 86 16 122/81 95 Room Air PG Care Time/CCT Total # of Minutes Spent Total Time Spent with Patient: Total time spent is greater than 50% in coordination of care (as documented) at patient's floor/unit and/or counseling patient: Coding Diagnoses Cat bite of right hand with infection S61.451A; L08.9; W55.01XA Flexor tenosynovitis of finger M65.9 Cellulitis of right hand L03.113 Depression F32.9 Vitamin D deficiency E55.9 Hypercholesteremia E78.00
--- NOTE | 2024-04-26 09:26 | Orthopedic Progress Note ---
Date of Service April 26, 2024 Assessment & Plan (1) Cat bite of right hand with infection: Plan: IMPRESSION: Right hand cellulitis secondarily to cat bite, nearly resolved on IV antibiotics The patient was educated regarding today's findings. Continue conservative care measures. Plan to transitioned to oral antibiotics. At this point no need to continue soaks. The patient will be allowed to eat today. I do not anticipate any need for surgical intervention with her improvement. Ok to d/c from ortho standpoint, offered follow-up appointment, but plans to follow-up with PCP. Admission and Anticipated Discharge Date Admission Date: April 25, 2024 Subjective Feeling much better Physical Exam Physical Exam: General: Well-developed, well-nourished, middle-aged female, in no acute distress. Sitting in a bedside chair. Alert and oriented. Skin: Warm and dry with good turgor. No rashes. Puncture kilgore on the dorsum of the right hand barely perceptible. No pus present. Erythema and edema on the dorsum of the hand nearly completely resolved. Non-tender. No warmth. Musculoskeletal: Neurovascularly intact. Improved motion of the wrist and digits. No symptoms of tenosynovitis currently. Results & Data Vital Signs (Past 12 Hours) Vital Signs Temp Pulse Resp BP Pulse Ox O2 Del Method 04/26/24 08:07 36.5 C 73 16 120/77 100 Room Air 04/26/24 07:25 Room Air Laboratory Results 04/26/24 Range/Units 05:48 WBC 6.13 (4.8-10.8) K/ul RBC 4.32 (4.20-5.40) M/uL Hgb 12.4 (12.0-16.0) g/dl Hct 37.9 (37.0-47.0) % MCV 87.7 (80.0-100.0) fL MCH 28.7 (25.0-34.0) pg MCHC 32.7 (32.0-36.0) g/dL RDW Std Deviation 41.4 (36.4-46.3) fL RDW Coeff of Pratibha 12.8 (11.5-14.5) % Plt Count 293 (130-400) K/uL MPV 11.2 (9.4-12.4) fL ESR 46 H (0-20) mm/hr Sodium 140 (136-145) mmol/L Potassium 4.1 (3.5-5.1) mmol/L Chloride 108 H (98-107) mmol/L Carbon Dioxide 27 (21-32) mmol/L Anion Gap 5 (3-11) BUN 13 (6-23) mg/dl Creatinine 0.61 (0.6-1.2) mg/dl Est Cr Clr Drug Dosing 107.6 ml/min Est GFR ( Amer) 128.7 ml/min Est GFR (Non-Af Amer) 111.0 ml/min BUN/Creatinine Ratio 21.3 H (10-20) Glucose 99 (70-99(Fasting)) mg/dl Calcium 8.2 L (8.6-10.3) mg/dl C-Reactive Protein 3.52 H (0-0.5) mg/dl
--- NOTE | 2024-04-26 09:34 | Discharge Summary ---
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 She had significant edema/swelling and having di fficulty with flexion/extension of fingers/unable to make a fist. Was provided dose IV Unasyn 04/23 and discharged on Augmentin BID which she left work and took first dose immediately followed by evening dose and morning dose 04/24 however erythema progressing up her hand with increased redness/warmth/swelling and increased difficulty with extension/flexion of fingers/inability to make a fist/fully extend fingers (worse at third digit) and concerns for flexor tenosynovitis +/- abscess requiring at least continued IV antibiotics and further evaluation WBC was borderline on admission despite 2 doses IV Unasyn and 3 doses of Augmentin PO and ESR 58/CRP 8.56 (procal negative <0.02), prompting imaging with MRI RIGHT hand given concerns third finger/flexion/extension and message/consultation while inpatient with Orthopedics, Dr Caraballo who agreed w/ recs for MRI hand MRI hand w/ Dorsal hand cellulitis with developing third digit extensor tenosynovitis. No abscess or acute osseous abnormality. Initially made NPO for possible I&D however had significant improvement on IV abx and no abscess noted and discussed w/ orthopedics who recommended continued abx at least 48hrs. Continued Unasyn IV x 48hrs with warm soaks w/ purulence from 2 areas and culture obtained/sent which is growing not surprisingly pasteurella on preliminary cx prior to discharge. WBC wnl/afebrile and inflammatory markers improved on repeat Was also provided Toradol IV to help with inflammation/pain/swelling and had SIGNIFICANT improvement and discussed with orthopedics and stable for discharge on continued Augmentin PO BID to complete the course. Continue elevation/pain control w/ NSAIDs and to return if any worsening and can f/u with ortho as desired. (2) Flexor tenosynovitis of finger: concerns for developing third digit extensor tenosynovitis as above on MRI but thankfully no abscess and was able to treat w/ 48hr IV abx and transition back to PO augmentin at [place]. Significant improvement in ROM in the hand and almost able to make complete fist. Continued ROM/warm soaks and antiinflammatories/augmentin as above (3) Cellulitis of right hand: As above, SIGNIFICANT improvement/cellulitis almost completely resolved on repeat exam (4) Depression: continued venlafaxine 225mg daily (5) Vitamin D deficiency: continued supp (6) Hypercholesteremia: outpt f/u, diet Notes For Next Care Provider F/u to ensure resolved/no need for extension of abx therapy past 10 days F/u final cx from hand (pasteurella on preliminary) Ortho f/u prn Medication Changes From Visit Continued augmentin PO BID for 10 day course following IV therapy in hospital Ibuprofen 600mg q8h prn pain/swelling Admission HPI Per Admitting Provider 44yo female with PMH significant or depression, HLD presented after cat bite on 04/22 at [employer] and had cleaned area well but AM 04/23 worsened when she came to work and went to ER where she had xray and dose of Unasyn and discharged home on Augmentin. Is up to date on her tetanus, dose 2 years ago and cat up to date on shots. She reports she took 3 doses and elevated hand at home, has had progression of redness/erythema and blisters to two of the three bite kilgore, not unroofed at this time. Pain with flexion of the hand, not able to make a complete fist. Appears worse flexion/swelling than when seen yesterday. Denies fever/chills at home but wasn't taking her temperature. She notes she would like to avoid opiates and toradol drug of choice. Discussed admission for ongoing abx, will continue Unasyn unless MRSA swab positive give healthcare worker and consultation with Dr Caraballo and MRI for eval of possible underlying tenosynovitis. Takes venlafaxine daily 225mg, stroke like symptoms when she misses this and reports she did take the dose this morning. To remain NPO until imaging/eval by Dr Caraballo in case of need for OR vs monitoring on IV abx. Patient agreeable to monitoring, full code. Admission Exam Per Admitting Provider 44yo female sitting up in bed in ER, NAD but mildly uncomfortable appearing with movement/flexion to her right handhead atraumatic, normocephalic, mmm/slightly dry, trachea midline Resp; even/unlabored, no w/c/r, on room air CV: RRR (rates 80-90s), no significant mrg GI: +BS, soft/NT ; no hudson MSK/Neuro/Skin: no confusion/no slurred speech/facial droop, slight redness to cheeks RIGHT hand with several punctures from cat bite, erythema progressed along prior markings, +warmth, +tenderness, + cellulitis +pain with flexion of fingers, unable to make a fist. +pulse 2 areas of pustules, not draining some ecchymosis to mid dorsum of hand in region of third finger (most painful with flexion at this digit, however also having discomfort with flexion of 2nd/4th fingers as well) Psych: AOx3, cooperative and pleasant during encounter Discharge Exam 44yo female sitting up in chair, NAD Head atraumatic, normocephalic, mmm Resp even/unlabored, no wheezing, on room air CV: RRR, no mrg GI: +BS, soft/NT MSK/Neuro/skin: significant improvement/almost complete resolution in cellulitis in RIGHT hand, improvement in ROM and able to make fist today. significant improvement in flexion/extension third digit today with decreased discomfort. edema decreased. +pulse. sensation intact no further erythema/ecchymosis to volar aspect of hand todya Psych: AOx3, cooperative/pleasant with exam Updated Medication List Medication Instructions Recorded Confirmed Type cholecalciferol (vitamin D3) 25 25 mcg PO DAILY #30 caps 12/18/20 04/24/24 Rx mcg (1,000 unit) capsule acetaminophen 500 mg tablet 500 mg PO Q6H PRN PAIN/FEVER 04/23/24 04/24/24 History amoxicillin 875 mg-potassium 1 tab PO BID #20 tabs 04/23/24 04/24/24 Rx clavulanate 125 mg tablet drospirenone 3 mg-ethinyl 1 tab PO QAM 04/23/24 04/24/24 History estradiol 0.03 mg tablet (Svitlana) multivitamin 1 tab PO DAILY 04/23/24 04/24/24 History venlafaxine 150 mg See Rx Instructions .Route .COMPLEX 04/23/24 04/24/24 History capsule,extended release 24 hr venlafaxine 75 mg capsule,extended See Rx Instructions .Route .COMPLEX 04/23/24 04/24/24 History release 24 hr ibuprofen 600 mg tablet 600 mg PO Q8H PRN pain #14 tabs 04/25/24 Rx Hospital Stay Data Consultations 04/24/24 10:33 ED Decision to Admit Stat 04/24/24 10:46 Consult Orthopedic Surgery Routine Procedures Performed Operation Date: 04/25/24 07:30 <No data on this case meets the specified criteria> Diagnostic Imagining Performed Hand MRI 04/24/24 10:56 MR hand RT wo/w con HISTORY: 44 years-old Female cat bite, eval tenosynovitis acute pain of the right hand status post injury. Soft tissue swelling. COMPARISON: Hand radiographs 04/23/2024 TECHNIQUE: Multiplanar multisequence MRI of the right hand was obtained with and without IV contrast. FINDINGS: Motion degraded exam. There is moderate dorsal subcutaneous edema with edema tracking along the second through fifth digit extensor tendons. Subcutaneous edema is most pronounced in the third finger. No drainable fluid collections or bone marrow edema. No acute fracture, dislocation or osseous erosion. Flexor compartment tendons appear normal. Unremarkable ulnar nerve. No acute tendon or ligament tear identified. Enhancement is noted along the dorsal aspect of the third extensor tendon sheath on image 17 series 11. IMPRESSION: 1. Dorsal hand cellulitis with developing third digit extensor tenosynovitis. 2. No abscess or acute osseous abnormality. ACT 112: Negative or not required by law. The above report was generated using voice recognition software. It may contain grammatical, syntax or spelling errors. Electronically signed by: El Valladares M.D. 04/24/2024 6:22 PM Pending Results Patient Have Any Pending Studies at Discharge: Yes Discharge Instructions Given to Patient (Per Discharging Provider) You have been hospitalized for concerns for worsening infection despite antibiotic treatment concerning for need for IV antibiotics and further evaluation. We have given you minimum 48 hours of IV antibiotics with Unasyn as MRI of the hand was obtained and was concerning for a developing flexor tenosynovitis. Thankfully there was no abscess/fluid collection and you have responded nicely to antibiotic therapy without need for OR for incision and drainage for further treatment. Medications were provided to help with inflammation/pain/swelling and you can continue Ibuprofen/Tylenol at home for continued pain control and recommend that you continue the elevate the hand as much as possible and continue with warm soaks twice daily to promote drainage. Cultures were obtained from the drainage with the soaks and preliminary are showing gram negative bacteria. Typically cat bites are concerning for pasteurella and you can continue the Augmentin twice daily at discharge for ongoing therapy. You will have received 48hours/2 days of IV antibiotics in the hospital and should continue the additional 8 days of oral augmentin from prior prescription however please follow up with primary care to ensure continued improvement and no need to extend coverage to 14 days if needed however 10 days should be sufficient. Please take the day off of work to ensure allowed to rest and recover and IF feeling better and no continued drainage/discomfort can return to normal activities within the next 48 hours. Please continue to keep area clean and monitor for any worsened redness/pain/swelling, or for any fevers/chills which should prompt return to the ER. You can follow up with Dr Caraballo as needed if any ongoing issues but please follow up with primary care in the next 7-10 days to ensure continued improvement after discharge. It has been a pleasure being a part of the medical team providing for you while you have been in the hospital. Take care! Total Time Total Time Spent Total Time Spent (In Minutes): 40 Coding Level of Care Code 17876 INP/OBS DISCH >30 MIN Diagnoses Cat bite of right hand with infection S61.451A; L08.9; W55.01XA Flexor tenosynovitis of finger M65.9 Cellulitis of right hand L03.113 Depression F32.9 Vitamin D deficiency E55.9 Hypercholesteremia E78.00
== END 2024-04-26 10:10 | disposition home or self-care (01) | DRG 603 ==
LOC: SUATTDRO → ED 08:44 → EDINP 08:44 → 3E 14:06